=== PATIENT | female | born 1935 | race Caucasian/White ===

== ENCOUNTER 2016-12-10 14:20 | Inpatient (IN) | payer MEDICARE, BC ==
[~2016-12-10] VITALS: Ht 167.6 cm; Wt 79.4 kg
[2016-12-10] VITALS (488 sets, daily range): BP systolic 119–154; BP diastolic 43–92; PULSE 79–89; TEMP 97.8–98.3; O2SAT 80–100
[~2016-12-10 14:20] MED LIST: AMOXICILLIN 50500 MG PO; BIAXIN 500MG T500 MG PO; CARAFATE 1GM1 G PO; COZAAR100 MG PO; DIFLUCAN200 MG PO; FLEXERIL 1010 MG/TAB PO; FORTEO250 MCG/ML SC; HYTRIN 5MG C5 MG/CAP PO; HYZAAR 12.5 MG-1 TAB PO; LIDODERM 5% PATC1 EA TP; MULTIPLE VITAMI1 CAP PO; NEURONTIN100 MG/CAP PO; NEXIUM 40MG40 MG PO; NORCO 325 MG-51 TAB PO; NORVASC 5MG5 MG/TAB PO; PERCR 7.5 PO; PRAVACHOL 40MG40 MG PO; PREDNISONE 5MG5 MG PO; PREDNISONE10 MG PO; PREDNISONE20 MG PO; PRILOSEC 20MG20 MG PO; PROMETHAZINE12.5 M5 PO; PROTONIX 40MG T40 MG PO; TYLENOL 8 HR PO; VESICARE 5MG5 MG PO; VESICARE10 MG PO; ZOLOFT 100MG100 MG PO; [UNRECOGNIZED DRUG - OTHER] PO
[2016-12-10 16:24] LABS: PH 5 (5-8); SQUAMOUS EPITHELIAL 0-2 /hpf; URINE APPEARANCE Cloudy; URINE BACTERIA None Seen /hpf; URINE BILIRUBIN Negative (NEGATIVE); URINE BLOOD 1+ (NEGATIVE); URINE COLOR Yellow; URINE GLUCOSE Negative (NEGATIVE); URINE KETONE Negative (NEGATIVE); URINE UROBILINOGEN Negative (NEGATIVE); URINE WBC >50 /hpf
[2016-12-10 16:36] LABS: BASO % 0.3 % (0.0-2.0); GRAN # 11.5 (1.4-6.5); GRAN % 85.2 % (42.2-75.2); LYMPH # 1.2 (1.2-3.4); LYMPH % 9.2 % (20.0-51.0); MEAN CELL VOLUME 85 fl (80.0-100.0); MEAN CORPUSCULAR HGB CONC 34 g/dl (33.0-37.0); MEAN PLATELET VOLUME 9.4 fl (7.4-10.4); MONO # 0.6 (0.1-0.6); MONO % 4.8 % (1.7-9.3); PLATELET COUNT 201 K/mm3 (130-400); RED BLOOD COUNT 3.78 M/mm3 (4.10-5.30); REDCELL DISTRIBUTION WIDTH-CV 13.5 % (11.5-14.5); WHITE BLOOD COUNT 13.4 K/mm3 (4.8-10.8)
[2016-12-10 16:37] LABS: HEMOGLOBIN 10.8 g/dl (12.5-16.0); MEAN CORPUSCULAR HEMOGLOBIN 29 pg (27.0-31.0)
[2016-12-10 16:41] LABS: INR 1.3 (0.8-3.0); PROTHROMBIN TIME 14.6 SECONDS (9.7-12.8)
[2016-12-10 16:47] LABS: ADJUSTED CALCIUM 8.6 mg/dL (8.4-10.2); BILIRUBIN,TOTAL 0.6 mg/dL (0.0-1.0); CALCIUM 7.8 mg/dL (8.4-10.2); CREATININE, serum 1.44 mg/dL (0.52-1.25); POTASSIUM 3.4 mmol/L (3.4-5.0); TOTAL PROTEIN 5.8 gm/dL (6.4-8.2)
[2016-12-10 17:01] LABS: TROPONIN-I 12.3 ng/mL (0.000-0.034)
[2016-12-10 17:21] LABS: ARTERIAL BLD GAS O2 SATURATION 97.1 % (92-100); ARTERIAL BLD GAS TCO2 CT 19.2; ARTERIAL BLOOD GAS BASE EXCESS -6.2 (-2-2); ARTERIAL BLOOD GAS HCO3 18.2 meq/L (22-26); ARTERIAL BLOOD GAS PHT 7.37 C (7.35-7.45); ARTERIAL BLOOD GAS PO2 113.7 mmHg (80-100); ARTERIAL BLOOD GAS PO2T 113.7 (80-100); ARTERIAL BLOOD GAS pH 7.37 (7.35-7.45); OXYHEMOGLOBIN 96.3 %
[2016-12-10 17:22] LABS: ATS? YES
[2016-12-10 17:25] LABS: VENOUS BLOOD GAS BE -6.1 (-4-4); VENOUS BLOOD GAS SAO2 73.3 % (60-80)
[2016-12-10 17:26] LABS: VENOUS BLOOD GAS SITE CENTRAL LINE
[2016-12-10 19:29] LABS: CEREBROSPINAL TUBE #4; CSF APPEARANCE CLEAR; CSF COLOR COLORLESS
[2016-12-10 19:39] LABS: VENOUS BLOOD GAS BE -4.9 (-4-4); VENOUS BLOOD GAS SAO2 75.4 % (60-80); VENOUS BLOOD GAS SITE VENIPUNCTURE
[2016-12-11] VITALS (387 sets, daily range): BP systolic 130–170; BP diastolic 70–85; PULSE 74–85; TEMP 97.8–97.9; O2SAT 83–100
[2016-12-11 06:20] LABS: INR 1.4 (0.8-3.0); PROTHROMBIN TIME 16.2 SECONDS (9.7-12.8)
[2016-12-11 06:22] LABS: BASO % 0.3 % (0.0-2.0); EOS % 0.2 % (0-4.0); GRAN # 8.9 (1.4-6.5); GRAN % 82.3 % (42.2-75.2); LYMPH # 1.2 (1.2-3.4); LYMPH % 10.9 % (20.0-51.0); MEAN CELL VOLUME 85 fl (80.0-100.0); MEAN CORPUSCULAR HGB CONC 34 g/dl (33.0-37.0); MEAN PLATELET VOLUME 9.6 fl (7.4-10.4); MONO # 0.6 (0.1-0.6); MONO % 5.7 % (1.7-9.3); PLATELET COUNT 157 K/mm3 (130-400); RED BLOOD COUNT 3.35 M/mm3 (4.10-5.30); REDCELL DISTRIBUTION WIDTH-CV 13.8 % (11.5-14.5); WHITE BLOOD COUNT 10.8 K/mm3 (4.8-10.8)
[2016-12-11 06:27] LABS: HEMATOCRIT 28.6 % (37.0-47.0); HEMOGLOBIN 9.7 g/dl (12.5-16.0); MEAN CORPUSCULAR HEMOGLOBIN 29 pg (27.0-31.0)
[2016-12-11 06:35] LABS: ADJUSTED CALCIUM 8.9 mg/dL (8.4-10.2); ALBUMIN 2.9 gm/dL (3.5-5.0); BILIRUBIN,TOTAL 0.7 mg/dL (0.0-1.0); CREATININE, serum 1.14 mg/dL (0.52-1.25); MAGNESIUM 1.6 mg/dL (1.6-2.3); PHOSPHOROUS 3.5 mg/dL (2.5-4.5); POTASSIUM 3.4 mmol/L (3.4-5.0); TOTAL PROTEIN 5.6 gm/dL (6.4-8.2)
[2016-12-11 22:26] LABS: PROT-CREAT RATIO, URINE 1.2 (())
[2016-12-13 23:46] LABS: WEST NILE VIRUS IGG PCR CSF Negative (Negative)
== END 2016-12-11 09:49 | disposition short-term general hospital (02) | DRG 871 ==
LOC: ICU 14:20
PROVIDERS: Internal Medicine; Internal Medicine Infectious Disease; Psychiatry & Neurology Neurology
PROC: 009U3ZX Drainage of Spinal Canal, Percutaneous Approach, Diagnostic (ICD-10-PCS; principal; 2016-12-10)
DX: A41.9 Sepsis, unspecified organism (principal); B45.1 Cerebral cryptococcosis; I21.4 Non-ST elevation (NSTEMI) myocardial infarction; G93.41 Metabolic encephalopathy; N39.0 Urinary tract infection, site not specified; N17.9 Acute kidney failure, unspecified; E87.4 Mixed disorder of acid-base balance; Z66 Do not resuscitate; I10 Essential (primary) hypertension
CPT/HCPCS: 99223-AI; 99239; A4315; C1751; C1894; J0289; J0696; J1630; J1644; J1720; J2060; J2250; J7030; J7060

== ENCOUNTER 2016-12-26 16:22 | Outpatient (RCR) | payer MEDICARE, BC ==
[2016-12-26] VITALS (9 sets, daily range): BP systolic 116–168; BP diastolic 47–89; PULSE 69–79; TEMP 98.1–98.6
[~2016-12-26] VITALS: Ht 167.6 cm; Wt 77.2 kg
[2016-12-26] MEDS ORDERED: ULTRAM 50MG TAB50 MG PO (18:33)
== END 2016-12-27 09:24 | disposition home or self-care (01) ==
LOC: EUO 16:22 → EDSTATUS 12-27 11:00 → EUO 12-27 11:00
DX: D64.89 Other specified anemias (principal)
CPT/HCPCS: J7050; P9016

== ENCOUNTER → 2016-12-30 | Outpatient (REF) ==
[~2016-12-30] MED LIST changes: +ULTRAM 50MG TAB50 MG PO
[2016-12-30 09:26] LABS: HEMATOCRIT 34.7 % (37.0-47.0); HEMOGLOBIN 11.5 g/dl (12.5-16.0)
== END ==
LOC: ZLAB.STJ 09:15
PROVIDERS: Family Medicine
DX: Z01.89 Encounter for other specified special examinations (principal)

== ENCOUNTER 2020-09-07 16:00 | Outpatient (CLI) | payer MEDICARE, BC ==
[2020-09-07 16:32] VITALS: BP 128/62; PULSE 76; TEMP 98.8
[2020-09-07] MEDS ORDERED: HYZAAR 12.5 MG-1 TAB PO (16:37)
[2020-09-07] MEDS ORDERED: CATAPRES 0.1MG0.1 MG PO (16:37)
[2020-09-07] MEDS ORDERED: PREDNISONE 5MG5 MG PO (16:38)
--- NOTE | 2020-09-07 17:06 | NUR ---
Pt monitored following administration of initial prolia injection. Pt free of complaints or s/s of reaction. She is assisted out by wheelchair to 's car.
== END 2020-09-07 17:07 | disposition home or self-care (01) ==
LOC: EUO 16:00
DX: M81.0 Age-related osteoporosis without current pathological fracture (principal)
CPT/HCPCS: J0897

== ENCOUNTER 2021-12-18 14:58 | Outpatient (CLI) | payer MEDICARE, BC ==
[~2021-12-18] VITALS: Ht 167.6 cm; Wt 53.3 kg
[~2021-12-18 14:58] MED LIST changes: +CATAPRES 0.1MG0.1 MG PO
[2021-12-18] MEDS ORDERED: PRAVACHOL 40MG40 MG PO (15:28)
[2021-12-18] MEDS ORDERED: NEXIUM 40MG40 MG PO (15:28)
[2021-12-18] MEDS ORDERED: ARICEPT10 MG PO (15:31)
[2021-12-18] MEDS ORDERED: ZOLOFT 100MG100 MG PO (15:33)
[2021-12-18] MEDS ORDERED: HYTRIN 5MG C5 MG/CAP PO (15:33)
[2021-12-18] MEDS ORDERED: ARICEPT 5MG PO (15:34)
[2021-12-18] MEDS ORDERED: VESICARE 5MG5 MG PO (15:34)
[2021-12-18 15:35] VITALS: BP 173/89; PULSE 71; TEMP 98.4
== END 2021-12-18 17:09 | disposition home or self-care (01) ==
LOC: EUO 14:58
DX: M81.0 Age-related osteoporosis without current pathological fracture (principal)
CPT/HCPCS: J0897